=== PATIENT | male | born 1940 | race Hispanic/Latino ===

== ENCOUNTER 2017-06-07 16:02 | Outpatient (CLI) | payer MEDICARE ==
--- NOTE | 2017-06-07 16:59 | RAD ---
TWO VIEWS OF THE LUMBOSACRAL SPINE: 06/07/17 COMPARISON: 04/26/17 CT lumbar spine. HISTORY: Lumbar degenerative disc disease. Postoperative followup. FINDINGS: Two views of the lumbosacral spine were performed. The patient is status post remote posterior fusio n of L4 through S1. The patient has also had fusion in the posterior facets and laminectomies in the lower lumbar spine. The patient is status post interval fusion of L2 and L3 with right sided pedicl e screws. There is grade II anterolisthesis of L2 on L3. The intervertebral disc is more narrow than it was on the prior CT. No perihardware lucency is seen. The patient also appears to have had maia ectomies in the upper lumbar spine. IMPRESSION: Postsurgical changes of the lumbar spine as above. POS: BETHEL
== END 2017-06-07 16:03 | disposition home or self-care (01) ==
LOC: TBSIIMAG 16:02
PROVIDERS: ATTEND Physician Assistant
DX: M51.36 Other intervertebral disc degeneration, lumbar region (principal); Z98.890 Other specified postprocedural states
CPT/HCPCS: 72100

== ENCOUNTER → 2021-10-27 | Day surgery (SDC) | payer MEDICARE ==
[2021-10-26 11:18] VITALS: BMI 23.5
[~2021-10-27] MED LIST: FLU VACC QS2021-22(65YR UP)/PF 240 MCG/0.7 ML SYRINGE IM ONE
[2021-10-27 07:55] VITALS: BP 152/77; TEMP 98.1
== END ==
LOC: RAD 07:15 → EDSTATUS 08:00
PROVIDERS: ATTEND Family Medicine
DX: M96.1 Postlaminectomy syndrome, not elsewhere classified (principal); G89.4 Chronic pain syndrome; M54.16 Radiculopathy, lumbar region; M48.061 Spinal stenosis, lumbar region without neurogenic claudication; Z53.20 Procedure and treatment not carried out because of patient's decision for unspecified reasons; Z79.1 Long term (current) use of non-steroidal anti-inflammatories (NSAID); Z79.899 Other long term (current) drug therapy; Z88.0 Allergy status to penicillin; Z98.1 Arthrodesis status
CPT/HCPCS: 72120

== ENCOUNTER 2021-11-02 09:44 | Outpatient (CLI) | payer OTHER | END 2021-11-02 09:45 | disposition home or self-care (01) | LOC: MRI 09:44 | PROVIDERS: ATTEND Family Medicine | DX: R41.3 Other amnesia (principal) | CPT/HCPCS: 70551 ==

== ENCOUNTER 2022-10-17 17:04 | Observation (INO) | payer MEDICARE ==
[~2022-10-17 17:04] MED LIST changes: -FLU VACC QS2021-22(65YR UP)/PF 240 MCG/0.7 ML SYRINGE IM ONE; +Iopamidol-370 76% 500 ML 1 ML ONE
[2022-10-17 17:38] LABS: #Eosinphils 0.3 thou/uL (0.0-0.7); #Lymphocytes 2.4 thou/uL (1.20-3.40); #Monocytes 0.7 thou/uL (0.11-0.59); #Neutrophils 4.2 thou/uL (1.40-6.50); %Basophils 0.6 % (0.0-1.0); %Eosinophils 3.9 % (0.0-10.0); %Lymphocytes 31.9 % (21.0-51.0); %Monocytes 8.7 % (0.0-10.0); %Neutrophils 54.9 % (42.0-75.0); Hemoglobin 15.5 g/dL (14.0-18.0); Mean Corpuscular HGB CONC 35.6 g/dL (32.0-36.0); Mean Corpuscular Hemoglobin 33.2 pg (27.0-31.0); Mean Corpuscular Volume 93.3 fl (78.0-98.0); Platelet Count 209 10x3/uL (130-400); Red Blood Cell (RBC) Count 4.66 mill/uL (4.70-6.10); White Blood Cell (WBC) Count 7.6 10x3/uL (4.8-10.8)
[2022-10-17 17:47] LABS: Prothrombin Time 13.5 sec (12.0-14.7)
[2022-10-17 18:13] LABS: ALT (SGPT) 24 U/L (8-55); AST (SGOT) 25 U/L (5-34); Albumin 4.4 g/dL (3.4-4.8); Alkaline Phosphatase 116 U/L (40-110); Anion Gap 13 mmol/L (10-20); BUN (Urea Nitrogen) 19 mg/dL (8.4-25.7); Bilirubin, Total 1.5 mg/dL (0.2-1.2); CRP (Inflammatory) Less than 0.50 mg/dL (= or < 0.5); Calc. Creatinine Clearance 0 mL/min (70-130); Calcium 9.8 mg/dL (7.8-10.44); Carbon Dioxide 24 mmol/L (23-31); Chloride 105 mmol/L (98-107); Estimated GFR 69; Globulin 3.4 g/dL (2.4-3.5); Glucose 134 mg/dL (83-110); Potassium 3.8 mmol/L (3.5-5.1); Protein, Total 7.8 g/dL (5.8-8.1); Sodium 138 mmol/L (136-145)
[2022-10-17 18:31] LABS: SARS-CoV-2 NAA Rapid Test Not Detected (NotDetected)
[2022-10-17] MEDS ORDERED: Aspirin Chewable 81 MG TAB ONE (18:47)
[2022-10-17] MEDS ORDERED: Senokot S 8.6-50 MG TAB PO PRN (19:19)
[2022-10-17] MEDS ORDERED: Ondansetron PF 4 MG/2 ML Vial IVP PRN (19:19)
[2022-10-17] MEDS ORDERED: Acetaminophen 325 MG TAB PO PRN (19:19)
[2022-10-17] MEDS ORDERED: Bisacodyl 10 MG SUPP PR PRN (19:19)
[2022-10-17] MEDS ORDERED: hydrALAZINE 20 MG/ML VIAL SLOW IVP PRN (19:19)
[2022-10-17] MEDS ORDERED: Bisacodyl 5 MG TAB PO PRN (19:19)
[2022-10-17] MEDS ORDERED: Sodium Chloride 0.9% 1,000 ML IV SCH (19:30)
[2022-10-17] MEDS ORDERED: Atorvastatin Calcium 40 MG TAB PO SCH (21:00)
[2022-10-17 21:52] VITALS: BMI 24.3
[2022-10-18 06:04] LABS: Anion Gap 12 mmol/L (10-20); BUN (Urea Nitrogen) 17 mg/dL (8.4-25.7); Calc. Creatinine Clearance 70 mL/min (70-130); Calcium 9.1 mg/dL (7.8-10.44); Carbon Dioxide 22 mmol/L (23-31); Cardiac Risk 5.3 (Less than 4.5); Chloride 106 mmol/L (98-107); Cholesterol 184 mg/dl (< 200 Desired); Estimated GFR 86; Glucose 107 mg/dL (83-110); HDL Cholesterol 35 mg/dL (>60 Neg Risk); LDL Cholesterol, Calculated 111 mg/dL; Potassium 3.4 mmol/L (3.5-5.1); Sodium 137 mmol/L (136-145); Triglycerides 191 mg/dL (Less than 150)
[2022-10-18 06:12] LABS: Hemoglobin A1c 5.5 % (4.0-6.0)
[2022-10-18] MEDS ORDERED: ALPRAZolam 0.25 MG TAB PO SCH (08:15)
[2022-10-18] MEDS ORDERED: Aspirin 81 mg Enteric Coated Tablet PO SCH (09:00)
[2022-10-18] MEDS ORDERED: Lisinopril 5 MG TAB PO SCH (09:00)
[2022-10-18] MEDS ORDERED: Electrolyte Replacement Protocol 1 EACH FS SCH (09:45)
[2022-10-18] MEDS ORDERED: Potassium Chloride 20 MEQ TAB PO SCH (10:00)
[2022-10-18 12:00] VITALS: TEMP 97.8
[2022-10-18 12:55] VITALS: BP 159/67
[2022-10-18 15:14] LABS: Potassium 4.3 mmol/L (3.5-5.1)
[2022-10-18] MEDS ORDERED: Donepezil HCl 10 MG TAB PO SCH (21:00)
== END 2022-10-18 15:58 | disposition home or self-care (01) ==
LOC: ERS 17:04 → SUATTDRO 17:04 → NEURO 19:19
PROVIDERS: ADMIT Family Medicine; ATTEND Family Medicine
DX: G51.0 Bell's palsy (principal); M79.604 Pain in right leg; I10 Essential (primary) hypertension; M54.50 Low back pain, unspecified; F03.90 Unspecified dementia, unspecified severity, without behavioral disturbance, psychotic disturbance, mood disturbance, and anxiety; I37.1 Nonrheumatic pulmonary valve insufficiency; I35.1 Nonrheumatic aortic (valve) insufficiency; N40.0 Benign prostatic hyperplasia without lower urinary tract symptoms; Z79.899 Other long term (current) drug therapy; Z88.0 Allergy status to penicillin; Z20.822 Contact with and (suspected) exposure to COVID-19
CPT/HCPCS: 70450; 70496; 70498; 70553; 71045; 80048; 80061; 82962; 83036; 83605; 83880; 84132; 84484; 85610; 85730; 86140; 86850; 86900; 86901; 93005; 93306; 97535; 99285; G0378 ×3; U0002; 36415; 36416; 80053; 84443; 85025; Q9967

== ENCOUNTER 2023-02-22 16:24 | Inpatient (IN) | payer MEDICARE ==
[~2023-02-22 16:24] MED LIST changes: -Iopamidol-370 76% 500 ML 1 ML ONE; +Iopamidol-370 76% 500 ML MDV (1 ML CHARGE) ONE
[2023-02-22 17:28] LABS: #Eosinphils 0.1 thou/uL (0.0-0.7); #Monocytes 0.8 thou/uL (0.11-0.59); #Neutrophils 5.4 thou/uL (1.40-6.50); %Basophils 0.4 % (0.0-1.0); %Eosinophils 1.2 % (0.0-10.0); %Lymphocytes 23.6 % (21.0-51.0); %Monocytes 9.2 % (0.0-10.0); %Neutrophils 65.2 % (42.0-75.0); Hemoglobin 13.7 g/dL (14.0-18.0); Mean Corpuscular HGB CONC 34.4 g/dL (32.0-36.0); Mean Corpuscular Hemoglobin 31.1 pg (27.0-31.0); Mean Corpuscular Volume 90.5 fl (78.0-98.0); Platelet Count 213 10x3/uL (130-400); RBC Distribution Width 12.6 % (11.5-14.5); White Blood Cell (WBC) Count 8.2 10x3/uL (4.8-10.8)
[2023-02-22 17:49] LABS: Anion Gap 11 mmol/L (10-20); BUN (Urea Nitrogen) 18 mg/dL (8.4-25.7); Calc. Creatinine Clearance 0 mL/min (70-130); Carbon Dioxide 23 mmol/L (23-31); Chloride 108 mmol/L (98-107); Estimated GFR 68; Glucose 122 mg/dL (83-110); Magnesium 2.1 mg/dL (1.6-2.6); Potassium 3.6 mmol/L (3.5-5.1); Sodium 138 mmol/L (136-145)
[2023-02-22] MEDS ORDERED: Aspirin Chewable 81 MG TAB ONE (18:28)
[2023-02-22] MEDS ORDERED: Acetaminophen 650 MG Suppository PR PRN (20:31)
[2023-02-22] MEDS ORDERED: Ondansetron ODT 4 MG TAB PO PRN (20:31)
[2023-02-22] MEDS ORDERED: Ondansetron PF 4 MG/2 ML Vial IVP PRN (20:31)
[2023-02-22] MEDS ORDERED: hydrALAZINE 20 MG/ML VIAL SLOW IVP PRN (21:12)
[2023-02-22 21:26] LABS: Bacteria/HPF None Seen HPF (None Seen); Bilirubin Negative (Negative); Blood, Urine Trace (Negative); CAUTI Indications for Culture Dysuria,urgency,freq; Clarity Clear (Clear); Glucose, Urine (Dipstick) Normal (Negative); Ketone, Urine Negative (Negative); Leukocyte Negative Leu/uL (Negative); Nitrite Negative (Negative); Protein, Urine (Dipstick) 10 mg/dL (Neg-Trace); RBC/HPF 0-3 HPF (0-3); Specific Gravity, Urine 1.025 (1.002-1.036); Squamous Epithelial None Seen HPF (0-3); Urobilinogen Normal mg/dL (Less than 2); WBC/HPF 0-3 HPF (0-3); pH, Urine 5.5 (5.0-9.0)
[2023-02-22 21:28] LABS: Urine Culture Reflex No No
[2023-02-22 23:47] VITALS: BMI 24.7
[2023-02-23] MEDS ORDERED: Ciprofloxacin 500 MG TAB PO SCH (01:00)
[2023-02-23] MEDS ORDERED: Ciprofloxacin 0.3% Ophth Soln 2.5 ml Bottle R EAR SCH (01:00)
[2023-02-23 05:04] LABS: #Eosinphils 0.2 thou/uL (0.0-0.7); #Monocytes 0.7 thou/uL (0.11-0.59); #Neutrophils 3.6 thou/uL (1.40-6.50); %Basophils 0.6 % (0.0-1.0); %Eosinophils 2.5 % (0.0-10.0); %Lymphocytes 32.3 % (21.0-51.0); %Monocytes 10.9 % (0.0-10.0); %Neutrophils 53.4 % (42.0-75.0); Hemoglobin 13.4 g/dL (14.0-18.0); Mean Corpuscular HGB CONC 34.2 g/dL (32.0-36.0); Mean Corpuscular Hemoglobin 31.4 pg (27.0-31.0); Mean Corpuscular Volume 91.8 fl (78.0-98.0); Mean Platelet Volume 10.9 fL (7.4-10.4); Platelet Count 189 10x3/uL (130-400); RBC Distribution Width 12.9 % (11.5-14.5); Red Blood Cell (RBC) Count 4.27 mill/uL (4.70-6.10); White Blood Cell (WBC) Count 6.8 10x3/uL (4.8-10.8)
[2023-02-23 05:11] LABS: Hemoglobin A1c 5.6 % (4.0-6.0)
[2023-02-23 05:36] LABS: Anion Gap 12 mmol/L (10-20); BUN (Urea Nitrogen) 15 mg/dL (8.4-25.7); Calc. Creatinine Clearance 67 mL/min (70-130); Calcium 8.7 mg/dL (7.8-10.44); Carbon Dioxide 22 mmol/L (23-31); Cardiac Risk 5.3 (Less than 4.5); Chloride 108 mmol/L (98-107); Cholesterol 164 mg/dl (< 200 Desired); Estimated GFR 84; Glucose 109 mg/dL (83-110); HDL Cholesterol 31 mg/dL (>60 Neg Risk); LDL Cholesterol, Calculated 101 mg/dL; Potassium 3.4 mmol/L (3.5-5.1); Sodium 139 mmol/L (136-145); Triglycerides 158 mg/dL (Less than 150)
[2023-02-23] MEDS ORDERED: Potassium Chloride 20 MEQ TAB PO SCH (09:00)
[2023-02-23] MEDS: Aspirin 81 mg Enteric Coated Tablet PO SCH (09:02)
[2023-02-23] MEDS: Ciprofloxacin 0.3% Ophth Soln 2.5 ml Bottle R EAR SCH ×2 (09:02→20:36)
[2023-02-23] MEDS: Ciprofloxacin 500 MG TAB PO SCH ×2 (09:02→20:36)
[2023-02-23] MEDS: Clopidogrel Bisulfate 75 MG TAB PO SCH (09:02)
[2023-02-23] MEDS: Famotidine 20 MG TAB PO SCH (20:36)
[2023-02-23] MEDS: Atorvastatin Calcium 40 MG TAB PO SCH (20:36)
[2023-02-23] MEDS: Donepezil HCl 10 MG TAB PO SCH (20:36)
[2023-02-23] MEDS: Acetaminophen 325 MG TAB PO PRN (20:37)
[2023-02-23] MEDS ORDERED: Non-Formulary Item 1 EACH (Famotidine [Pepcid] 40 MG Tablet) PO SCH (21:00)
[2023-02-24] MEDS: Ciprofloxacin 500 MG TAB PO SCH ×2 (08:06→21:33)
[2023-02-24] MEDS: Clopidogrel Bisulfate 75 MG TAB PO SCH (08:06)
[2023-02-24] MEDS: Ciprofloxacin 0.3% Ophth Soln 2.5 ml Bottle R EAR SCH ×2 (08:06→21:34)
[2023-02-24] MEDS: Aspirin 81 mg Enteric Coated Tablet PO SCH (08:06)
[2023-02-24] MEDS ORDERED: Amlodipine 5 MG TAB PO SCH (09:30)
[2023-02-24] MEDS ORDERED: hydrALAZINE 20 MG/ML VIAL SLOW IVP PRN (11:48)
[2023-02-24] MEDS: Donepezil HCl 10 MG TAB PO SCH (21:33)
[2023-02-24] MEDS: Atorvastatin Calcium 40 MG TAB PO SCH (21:33)
[2023-02-24] MEDS: Famotidine 20 MG TAB PO SCH (21:33)
[2023-02-24] MEDS: Acetaminophen 325 MG TAB PO PRN (23:19)
[2023-02-25 05:30] LABS: #Basophils 0.1 thou/uL (0.0-0.2); #Eosinphils 0.3 thou/uL (0.0-0.7); #Monocytes 0.6 thou/uL (0.11-0.59); %Basophils 0.8 % (0.0-1.0); %Eosinophils 4.8 % (0.0-10.0); %Lymphocytes 26.3 % (21.0-51.0); %Monocytes 8.3 % (0.0-10.0); %Neutrophils 59.2 % (42.0-75.0); Mean Corpuscular HGB CONC 34.7 g/dL (32.0-36.0); Mean Corpuscular Hemoglobin 31.7 pg (27.0-31.0); Mean Corpuscular Volume 91.4 fl (78.0-98.0); Mean Platelet Volume 10.4 fL (7.4-10.4); Platelet Count 212 10x3/uL (130-400); RBC Distribution Width 12.4 % (11.5-14.5); Red Blood Cell (RBC) Count 4.42 mill/uL (4.70-6.10); White Blood Cell (WBC) Count 6.7 10x3/uL (4.8-10.8)
[2023-02-25 05:54] LABS: Anion Gap 13 mmol/L (10-20); BUN (Urea Nitrogen) 22 mg/dL (8.4-25.7); Calc. Creatinine Clearance 55 mL/min (70-130); Calcium 9.3 mg/dL (7.8-10.44); Carbon Dioxide 24 mmol/L (23-31); Chloride 104 mmol/L (98-107); Estimated GFR 66; Glucose 120 mg/dL (83-110); Potassium 3.8 mmol/L (3.5-5.1); Sodium 137 mmol/L (136-145)
[2023-02-25] MEDS: Aspirin 81 mg Enteric Coated Tablet PO SCH (08:55)
[2023-02-25] MEDS: Ciprofloxacin 500 MG TAB PO SCH (08:56)
[2023-02-25] MEDS: Clopidogrel Bisulfate 75 MG TAB PO SCH (08:56)
[2023-02-25] MEDS: Ciprofloxacin 0.3% Ophth Soln 2.5 ml Bottle R EAR SCH (08:59)
[2023-02-25] MEDS ORDERED: Amlodipine 5 MG TAB PO SCH (09:00)
[2023-02-25 11:23] VITALS: BP 162/76; TEMP 97.2
== END 2023-02-25 11:50 | disposition home health service (06) | DRG 66 ==
LOC: ERS 16:24 → NEURO 20:31 → OBSVTOIN 02-23 08:45
PROVIDERS: ADMIT Student in an Organized Health Care Education/Training Program; ATTEND Internal Medicine
DX: I63.9 Cerebral infarction, unspecified (principal); F03.90 Unspecified dementia, unspecified severity, without behavioral disturbance, psychotic disturbance, mood disturbance, and anxiety; I10 Essential (primary) hypertension; H66.91 Otitis media, unspecified, right ear; N40.0 Benign prostatic hyperplasia without lower urinary tract symptoms; M54.50 Low back pain, unspecified; F41.9 Anxiety disorder, unspecified; F32.A Depression, unspecified; Z88.0 Allergy status to penicillin; Z79.82 Long term (current) use of aspirin; Z79.899 Other long term (current) drug therapy; Z98.890 Other specified postprocedural states
CPT/HCPCS: 36415; 70450; 70496; 70498; 70551; 71250; 80048; 80061; 81001; 83036; 83605; 83735; 84443; 84484; 85025; 93005; 93306; 96374; G0378; J0360; Q9967

== ENCOUNTER 2024-07-03 14:50 | Outpatient (CLI) | payer MEDICARE | END 2024-07-03 14:51 | disposition home or self-care (01) | LOC: BICULT 14:50 | PROVIDERS: ATTEND Family Medicine | DX: R35.0 Frequency of micturition (principal) | CPT/HCPCS: 76770 ==

== ENCOUNTER 2025-05-27 13:48 | Outpatient (CLI) | payer MEDICARE | END 2025-05-27 13:49 | disposition home or self-care (01) | LOC: ULT 13:48 | PROVIDERS: ATTEND Family Medicine | DX: R35.0 Frequency of micturition (principal); N20.0 Calculus of kidney | CPT/HCPCS: 76770 ==

== ENCOUNTER 2025-09-02 11:33 | Emergency (ER) | payer MEDICARE, OTHER | END 2025-09-02 13:20 | disposition home or self-care (01) | LOC: ERS 11:33 | DX: S00.03XA Contusion of scalp, initial encounter (principal); M48.52XA Collapsed vertebra, not elsewhere classified, cervical region, initial encounter for fracture; M47.812 Spondylosis without myelopathy or radiculopathy, cervical region; I10 Essential (primary) hypertension; W06.XXXA Fall from bed, initial encounter; W22.8XXA Striking against or struck by other objects, initial encounter | CPT/HCPCS: 70450; 72125 ==